=== PATIENT | female | born 1955 | race Caucasian/White ===

== ENCOUNTER 2022-12-11 14:25 | Inpatient (IN) | payer MEDICAID ==
[~2022-12-11] VITALS: Ht 162.6 cm; Wt 60.8 kg
[~2022-12-11 14:25] MED LIST: METF-414 PO
[2022-12-11 15:26] LABS: BG BASE EXCESS 2.9 mmol/L (-2.0-2.0); BG DEOXYHEMOGLOBIN 9.2 % (0.0-5.0); BG FRACTION INSPIRED OXYGEN 35; BG HCO3 ACT 26.6 mmol/L (22.0-26.0); BG METHEMOGLOBIN 0.2 % (0.0-1.5); BG OXYGEN SATURATION 90.8 % (92.0-98.5); BG OXYHEMOGLOBIN 90.6 % (94.0-97.0); BG PCO2 37.8 mmHg (35.0-45.0); BG PH 7.466 (7.350-7.450); BG PO2 51.8 mmHg (75.0-100.0); BG SAMPLE SITE RIGHT RADIAL; BG TOTAL HEMOGLOBIN 10.9 g/dL (12.0-18.0); BG VENT MODE COOL AEROSOL
[2022-12-11 15:44] LABS: CHLORIDE 98 mEq/L (98-107)
[2022-12-11 15:50] LABS: HEMATOCRIT. 31.7 % (36.0-48.0); HEMOGLOBIN. 10.4 g/dL (12.0-16.0); MEAN CORPUSCULAR HEMOGLOBIN 29.4 pg (28.0-32.0); MEAN CORPUSCULAR VOLUME 89.6 fL (81.0-99.0); RED BLOOD CELL COUNT 3.54 mill/uL (4.2-5.4); RED CELL DISTRIBUTION WIDTH 14.5 % (11.6-14.6)
[2022-12-11] MEDS ORDERED: CEFEPIME 2,000 MG in DEXT 5% WATER 100 ML IV SCH (18:00)
[2022-12-11 18:15] LABS: PLATELET ESTIMATE SLIGHTLY DECREASED
[2022-12-11 18:17] LABS: MEAN PLATELET VOLUME 12.8 fl (7.4-10.4); PLATELET 128 x1000/uL (130-400)
[2022-12-11] MEDS ORDERED: ACETAMINOPHEN 650MG/20.3ML UDC PO ONE (18:45)
[2022-12-11] MEDS: AZITHROMYCIN 500MG in DEXTROSE 5% WATER 250ML IV SCH (18:48)
[2022-12-11] MEDS ORDERED: AZITHROMYCIN 250 MG in DEXT 5% WATER 250 ML IV SCH (20:00)
[2022-12-11] MEDS ORDERED: SODIUM CHLORIDE 0.9% 500 ML IV NR (22:45)
[2022-12-11] MEDS ORDERED: PIPERACILLIN/TAZOBACTAM 3.375GM/50ML PREMIX IV ONE (22:45)
[2022-12-11] MEDS ORDERED: SODIUM CHLORIDE 0.9% 1,000 ML IV NR (22:45)
[2022-12-12] VITALS (13 sets, daily range): BP systolic 104–165; BP diastolic 52–107
[2022-12-12] MEDS ORDERED: BISACODYL 10MG SUPP PR PRN (02:15)
[2022-12-12] MEDS ORDERED: NA PHOS,M-B/NA PHOS,DI-BA ENEMA 118ML PR PRN (02:15)
[2022-12-12] MEDS ORDERED: DEXTROSE 50% WATER 50ML SYRINGE IV PRN ×2 (02:15)
[2022-12-12] MEDS ORDERED: OXYCODONE HCL 5MG TABLET PO PRN (02:30)
[2022-12-12] MEDS ORDERED: NALOXONE HCL 0.4MG/ML VIAL IV PRN (02:30)
[2022-12-12] MEDS: ACETAMINOPHEN 325MG TABLET GT PRN (05:48)
[2022-12-12] MEDS ORDERED: PIPERACILLIN/TAZOBACTAM 3.375G in DEXT 5% WATER 50ML IV SCH (06:00)
[2022-12-12] MEDS: BLOOD SUGAR DIAGNOSTIC STRIP TEST SCH ×4 (06:35→23:08)
[2022-12-12 06:39] LABS: HEMATOCRIT. 29.5 % (36.0-48.0); HEMOGLOBIN. 10.1 g/dL (12.0-16.0); MEAN CORPUSCULAR HEMOGLOBIN 30.1 pg (28.0-32.0); MEAN PLATELET VOLUME 12.7 fl (7.4-10.4); PLATELET 116 x1000/uL (130-400); RED BLOOD CELL COUNT 3.35 mill/uL (4.2-5.4); RED CELL DISTRIBUTION WIDTH 14.8 % (11.6-14.6)
[2022-12-12] MEDS ORDERED: BLOOD SUGAR DIAGNOSTIC STRIP TEST SCH (07:30)
[2022-12-12] MEDS ORDERED: IPRATROPIUM/ALBUTEROL 0.5-3(2.5)MG/3ML NEB HHN PRN (08:15)
[2022-12-12] MEDS: INSULIN LISPRO 100 UNITS/ML SUBCUT SCH ×4 (08:31→23:08)
[2022-12-12] MEDS: QUETIAPINE FUMARATE 50MG TABLET PO SCH ×2 (08:32→21:29)
[2022-12-12] MEDS: DOCUSATE SODIUM 100MG CAPSULE GT SCH (08:33)
[2022-12-12] MEDS: FAMOTIDINE 20MG TABLET GT SCH (08:33)
[2022-12-12] MEDS: ENOXAPARIN 40MG/0.4ML SYR SUBCUT SCH (08:36)
[2022-12-12] MEDS: INSULIN GLARGINE 100 UNITS/ML SUBCUT SCH ×2 (11:37→21:29)
[2022-12-12 12:03] LABS: HEPATITIS B SURFACE ANTIGEN NEGATIVE
[2022-12-12] MEDS: CEFEPIME 2,000 MG in DEXT 5% WATER 100 ML IV SCH ×2 (14:24→22:01)
[2022-12-12 14:55] LABS: PLATELET ESTIMATE SLIGHTLY DECREASED
[2022-12-12] MEDS ORDERED: OXYC5CAP19 GT (15:48)
[2022-12-12] MEDS ORDERED: SENN-178 GT (15:48)
[2022-12-12] MEDS ORDERED: FAMO-287 PO (15:48)
[2022-12-12] MEDS ORDERED: ENOX40SY27 SQ (15:48)
[2022-12-12] MEDS ORDERED: MULT-1318 GT (15:48)
[2022-12-12] MEDS ORDERED: AMLO10TA80 PO (15:48)
[2022-12-12] MEDS ORDERED: DOCU-138 GT (15:48)
[2022-12-12] MEDS ORDERED: INSLIS SUBCUT (15:48)
[2022-12-12] MEDS ORDERED: ATROV3 BOTHNSTRLS (15:48)
[2022-12-12] MEDS ORDERED: GABA-532 GT (15:48)
[2022-12-12] MEDS ORDERED: BISA-81 GT (15:48)
[2022-12-12] MEDS ORDERED: MELA5TAB21 GT (15:48)
[2022-12-12] MEDS ORDERED: MOM GT (15:48)
[2022-12-12] MEDS ORDERED: INSU100I28 SQ (15:48)
[2022-12-12] MEDS ORDERED: NA P230E RC (15:48)
[2022-12-12] MEDS ORDERED: POLY17PO43 GT (15:48)
[2022-12-12] MEDS ORDERED: QUET150T20 GT (15:48)
[2022-12-12] MEDS ORDERED: SENNOSIDES/DOCUSATE SOD 8.6/50MG TABLET GT PRN (16:00)
[2022-12-12] MEDS ORDERED: MAGNESIUM HYDROXIDE 400MG/5ML 30ML UDC GT PRN (16:00)
[2022-12-12] MEDS ORDERED: POLYETHYLENE GLYCOL 3350 (17GM) 1 DOSE PACK GT PRN (16:00)
[2022-12-12 17:03] LABS: CLARITY URINE TURBID (CLEAR); COLOR URINE YELLOW (YELLOW); KETONES URINE NEGATIVE (NEGATIVE); LEUKOCYTE ESTERASE URINE 3+ (NEGATIVE); NITRITE URINE NEGATIVE (NEGATIVE); OCCULT BLOOD URINE 3+ (NEGATIVE); PH URINE 7.5 (4.5-8.0); PROTEIN URINE 2+ (NEGATIVE); SPECIFIC GRAVITY URINE 1.014 (1.005-1.030)
[2022-12-12] MEDS: AZITHROMYCIN 500MG in DEXTROSE 5% WATER 250ML IV SCH (17:47)
[2022-12-12] MEDS: AMLODIPINE 10MG TABLET GT SCH (17:49)
[2022-12-12] MEDS: IPRATROPIUM/ALBUTEROL 0.5-3(2.5)MG/3ML NEB HHN SCH (19:55)
[2022-12-12] MEDS ORDERED: QUETIAPINE FUMARATE 50MG TABLET GT SCH (21:00)
[2022-12-12] MEDS: GABAPENTIN 300MG CAPSULE GT SCH (21:29)
[2022-12-13] VITALS (11 sets, daily range): BP systolic 90–142; BP diastolic 38–78
[2022-12-13] MEDS: IPRATROPIUM/ALBUTEROL 0.5-3(2.5)MG/3ML NEB HHN SCH ×4 (01:10→20:44)
[2022-12-13] MEDS: GABAPENTIN 300MG CAPSULE GT SCH (05:20)
[2022-12-13] MEDS: INSULIN LISPRO 100 UNITS/ML SUBCUT SCH ×5 (05:20→23:29)
[2022-12-13] MEDS: BLOOD SUGAR DIAGNOSTIC STRIP TEST SCH ×4 (05:20→23:22)
[2022-12-13] MEDS: ACETAMINOPHEN 325MG TABLET GT PRN (05:39)
[2022-12-13] MEDS: AMLODIPINE 10MG TABLET GT SCH (09:00)
[2022-12-13] MEDS: CEFEPIME 2,000 MG in DEXT 5% WATER 100 ML IV SCH ×2 (09:23→20:48)
[2022-12-13] MEDS: MULTIVITAMINS,THER W-MINERALS TABLET GT SCH (09:24)
[2022-12-13] MEDS: FAMOTIDINE 20MG TABLET GT SCH (09:24)
[2022-12-13] MEDS: QUETIAPINE FUMARATE 50MG TABLET PO SCH ×2 (09:24→20:47)
[2022-12-13] MEDS: DOCUSATE SODIUM 100MG CAPSULE GT SCH (09:24)
[2022-12-13] MEDS: ENOXAPARIN 40MG/0.4ML SYR SUBCUT SCH (09:25)
[2022-12-13] MEDS: INSULIN GLARGINE 100 UNITS/ML SUBCUT SCH ×2 (09:25→22:39)
[2022-12-13] MEDS: AZITHROMYCIN 500MG in DEXTROSE 5% WATER 250ML IV SCH (18:29)
[2022-12-13] MEDS ORDERED: CEFTRIAXONE 2GM/50ML (ADDEASE) 50 ML IV SCH (20:30)
[2022-12-13] MEDS: GABAPENTIN SOLN 300MG/6ML UDC GT SCH (21:07)
[2022-12-13] MEDS ORDERED: CEFTRIAXONE 2 G in DEXTROSE 5% WATER 50 ML IV SCH (22:00)
[2022-12-14] VITALS (9 sets, daily range): BP systolic 102–136; BP diastolic 55–84
[2022-12-14] MEDS: IPRATROPIUM/ALBUTEROL 0.5-3(2.5)MG/3ML NEB HHN SCH ×3 (02:10→14:29)
[2022-12-14] MEDS: BLOOD SUGAR DIAGNOSTIC STRIP TEST SCH ×3 (05:05→17:08)
[2022-12-14] MEDS: INSULIN LISPRO 100 UNITS/ML SUBCUT SCH ×3 (05:13→17:09)
[2022-12-14] MEDS: GABAPENTIN SOLN 300MG/6ML UDC GT SCH ×2 (05:13→13:27)
[2022-12-14 06:44] LABS: BASOPHILS % 0.4 % (0.0-2.0); EOSINOPHILS % 1.1 % (0.0-5.0); HEMATOCRIT. 28.2 % (36.0-48.0); HEMOGLOBIN. 9.5 g/dL (12.0-16.0); LYMPHOCYTES % 7.2 % (20.0-50.0); MEAN CORPUSCULAR HEMOGLOBIN 29.6 pg (28.0-32.0); MEAN CORPUSCULAR VOLUME 87.7 fL (81.0-99.0); MEAN PLATELET VOLUME 12.1 fl (7.4-10.4); MONOCYTES % 11.9 % (2.0-8.0); NEUTROPHILS % 79.4 % (40.0-76.0); PLATELET 134 x1000/uL (130-400); RED BLOOD CELL COUNT 3.22 mill/uL (4.2-5.4); RED CELL DISTRIBUTION WIDTH 14.7 % (11.6-14.6)
[2022-12-14] MEDS: AMLODIPINE 10MG TABLET GT SCH (09:53)
[2022-12-14] MEDS: MULTIVITAMINS,THER W-MINERALS TABLET GT SCH (09:53)
[2022-12-14] MEDS: FAMOTIDINE 20MG TABLET GT SCH (09:53)
[2022-12-14] MEDS: QUETIAPINE FUMARATE 50MG TABLET PO SCH (09:53)
[2022-12-14] MEDS: ENOXAPARIN 40MG/0.4ML SYR SUBCUT SCH (09:53)
[2022-12-14] MEDS ORDERED: DOCUSATE SODIUM SUGAR FREE 100MG/10ML UDC GT SCH (10:00)
[2022-12-14] MEDS: INSULIN GLARGINE 100 UNITS/ML SUBCUT SCH (10:04)
== END 2022-12-14 19:19 | DRG 720 ==
LOC: ER 14:33 → 5EST 16:26 → ENRESERV 21:38
PROVIDERS: ADMIT Internal Medicine; ATTEND Internal Medicine
DX: A41.51 Sepsis due to Escherichia coli [E. coli] (principal); J96.21 Acute and chronic respiratory failure with hypoxia; N17.9 Acute kidney failure, unspecified; E44.0 Moderate protein-calorie malnutrition; J18.9 Pneumonia, unspecified organism; E11.51 Type 2 diabetes mellitus with diabetic peripheral angiopathy without gangrene; N39.0 Urinary tract infection, site not specified; B96.20 Unspecified Escherichia coli [E. coli] as the cause of diseases classified elsewhere; I50.9 Heart failure, unspecified; Z93.0 Tracheostomy status; Z20.822 Contact with and (suspected) exposure to COVID-19; Z68.23 Body mass index [BMI] 23.0-23.9, adult; D64.9 Anemia, unspecified; E11.9 Type 2 diabetes mellitus without complications; K74.60 Unspecified cirrhosis of liver; D72.829 Elevated white blood cell count, unspecified; R13.10 Dysphagia, unspecified; Z93.1 Gastrostomy status
CPT/HCPCS: 36415; 36600; 71045; 80048; 80053; 81003; 82375; 82805; 82962; 83036; 83605; 83880; 84145; 84484; 85025; 86803; 87070; 87077; 87186; 87340; 87426; 87804; 93005; 93306; 93970; 94640; 99291; A6261; C9803; J0456; J0692; J0696; J1650; J1815; J2543; J7060; A4315